=== PATIENT | female | born 1975 | race Caucasian/White ===

== ENCOUNTER 2017-06-21 13:04 | Emergency (ER) | payer MEDICAID ==
--- NOTE | 2017-06-21 13:35 | ED Physician Documentation ---
PD HPI CHEST PAIN - Stated complaint Stated Complaint: SOA, HEAVY CHEST, R ARM DISCOMFORT - Chief complaint Chief Complaint: Cardiac - History obtained from History obtained from: Patient - History of Present Illness Timing - onset: Other (Starting about 2 weeks ago she developed heartburn which was worse with coffee and better after Tums, she had bilateral leg cramping which was notable after using a treadmill. Today she became short of breath which was inexplicable. There is no associated cough but she has had 4 days of chest pressure pretty constantly. Nothing is exertional.) Review of Systems Ten Systems: 10 systems reviewed and negative Constitutional: denies: Fever, Chills Nose: denies: Rhinorrhea / runny nose, Congestion Cardiac: reports: Chest pain / pressure, Calf pain. denies: Palpitations, Pedal edema Respiratory: reports: Dyspnea. denies: Cough, Hemoptysis, Wheezing PD PAST MEDICAL HISTORY - Past Medical History Cardiovascular: None Respiratory: None Neuro: None Endocrine/Autoimmune: None Psych: Depression, Anxiety, Panic attacks Musculoskeletal: None - Past Surgical History Past Surgical History: Yes General: Appendectomy - Present Medications Home Medications: Ambulatory Orders Medication Instructions Recorded Confirmed No Known Home Medications [No 06/21/17 06/21/17 Known Home Medications] - Allergies Allergies/Adverse Reactions: Allergies Allergy/AdvReac Type Severity Reaction Status Date / Time No Known Drug Allergies Allergy Verified 02/22/16 17:12 - Social History Does the pt smoke?: No Smoking Status: Former smoker Does the pt drink ETOH?: No Does the pt have substance abuse?: No - Immunizations Immunizations are current?: Yes - POLST Patient has POLST: No PD ED PE NORMAL - Vitals Vital signs reviewed: Yes - General General: Alert and oriented X 3, No acute distress, Other (Initial BP was 94/50 , that was of small cuff on her forearm, I placed an appropriately sized cuff on her bicep and it was 147/60.) - HEENT HEENT: PERRL, EOMI - Neck Neck: Supple, no meningeal sign, No bony TTP, No bruit - Cardiac Cardiac: RRR, No murmur - Respiratory Respiratory: No respiratory distress, Clear bilaterally - Abdomen Abdomen: Non tender - Extremities Extremities: No edema, No calf tenderness / cord - Neuro Neuro: Alert and oriented X 3, Normal speech - Psych Psych: Normal mood, Normal affect Results - Vitals Vitals: Vital Signs - 24 hr 06/21/17 06/21/17 06/21/17 13:10 13:32 13:35 Temperature 37.1 C Heart Rate 80 78 Respiratory 18 20 Rate Blood Pressure 94/50 L 141/57 H Blood Pressure 125/56 L [Right] O2 Saturation 97 100 06/21/17 14:00 Temperature Heart Rate 79 Respiratory 16 Rate Blood Pressure 125/56 L Blood Pressure [Right] O2 Saturation 97 Oxygen O2 Source Room air - EKG (time done) 1314 Rate: Rate (enter#) (84) Rhythm: NSR Many: Normal Intervals: Normal [place] QRS: Normal Ischemia: Normal ST segments Computer interpretation: Agree with computer - Labs Labs: Laboratory Tests 06/21/17 06/21/17 06/21/17 13:45 13:45 13:45 WBC 8.7 RBC 4.87 Hgb 14.2 Hct 41.1 MCV 84.4 MCH 29.2 MCHC 34.6 RDW 13.5 Plt Count 243 MPV 7.6 L Neut # 6.2 Lymph # 1.6 [place] # 0.7 Eos # 0.2 Baso # 0.1 Absolute Nucleated RBC 0.00 Nucleated RBCs 0.0 D-Dimer Sodium 135 Potassium 4.0 Chloride 100 L Carbon Dioxide 26 Anion Gap 9.0 BUN 16 Creatinine 0.6 Estimated GFR (MDRD) 111 Glucose 84 Calcium 9.5 Total Bilirubin 0.5 AST 24 ALT 51 Alkaline Phosphatase 79 Troponin I < 0.04 Total Protein 7.8 Albumin 4.4 Globulin 3.4 Albumin/Globulin Ratio 1.3 Lipase 18 L Urine Color Urine Clarity Urine pH Ur Specific [place] Urine Protein Urine Glucose (UA) Urine Ketones Urine Occult Blood Urine Nitrite Urine Bilirubin Urine Urobilinogen Ur Leukocyte Esterase Urine RBC Urine WBC Ur Squamous Epith Cells Urine Bacteria Ur Microscopic Review Urine Culture Comments Urine HCG, Qual 06/21/17 06/21/17 14:17 14:55 WBC RBC Hgb Hct MCV MCH MCHC RDW Plt Count MPV Neut # Lymph # [place] # Eos # Baso # Absolute Nucleated RBC Nucleated RBCs D-Dimer < 200.0 L Sodium Potassium Chloride Carbon Dioxide Anion Gap BUN Creatinine Estimated GFR (MDRD) Glucose Calcium Total Bilirubin AST ALT Alkaline Phosphatase Troponin I Total Protein Albumin Globulin Albumin/Globulin Ratio Lipase Urine Color YELLOW Urine Clarity CLEAR Urine pH 6.0 Ur Specific [place] >=1.030 H Urine Protein NEGATIVE Urine Glucose (UA) NEGATIVE Urine Ketones TRACE Urine Occult Blood TRACE-INTA Urine Nitrite NEGATIVE Urine Bilirubin NEGATIVE Urine Urobilinogen 0.2 (NORMAL) Ur Leukocyte Esterase TRACE H Urine RBC 0-5 Urine WBC 4-5 Ur Squamous Epith Cells MANY Squamous H Urine Bacteria Few Ur Microscopic Review INDICATED Urine Culture Comments NOT INDICATED Urine HCG, Qual NEGATIVE - Rads (name of study) 2v chest Radiology: EMP read contemporaneously (normal) PD MEDICAL DECISION MAKING - ED course ED course: 41-year-old woman with what sounds like esophagitis, better with Tums, worse after coffee but now some shortness of breath. D-dimer negative, EKG normal, chest x-ray normal. Departure - Departure Disposition: 01 Home, Self Care Clinical Impression: Chest pain Qualifiers: Chest pain type: unspecified Qualified Code(s): R07.9 - Chest pain, unspecified Condition: Good Record reviewed to determine appropriate education?: Yes Instructions: ED Chest Pain NonCardiac Comments: Call your doctor to arrange a follow-up appointment, make the next available appointment. In the interim, return anytime if worse or if new symptoms develop.
[2017-06-21 14:08] LABS: BASOPHILS # (AUTO) 0.1 10^3/uL (0.0-0.1); BASOPHILS % (AUTO) 0.6 %; EOSINOPHILS # (AUTO) 0.2 10^3/uL (0.0-0.7); EOSINOPHILS % (AUTO) 2.7 %; HCT - HEMATOCRIT 41.1 % (37.0-47.0); HGB - HEMOGLOBIN 14.2 g/dL (12.0-16.0); LYMPHOCYTES # (AUTO) 1.6 10^3/uL (1.5-3.5); LYMPHOCYTES % (AUTO) 18.1 %; MEAN CORPUSCULAR HEMOGLOBIN 29.2 pg (27.0-31.0); MEAN CORPUSCULAR HGB CONC 34.6 g/dL (32.0-36.0); MEAN CORPUSCULAR VOLUME 84.4 fL (81.0-99.0); MEAN PLATELET VOLUME 7.6 fL (7.9-10.8); MONOCYTES # (AUTO) 0.7 10^3/uL (0.0-1.0); MONOCYTES % (AUTO) 7.7 %; NEUTROPHILS # (AUTO) 6.2 10^3/uL (1.5-6.6); NEUTROPHILS % (AUTO) 70.9 %; RED BLOOD COUNT 4.87 10^6/uL (4.20-5.40); RED CELL DISTRIBUTION WIDTH 13.5 % (12.0-15.0); UNCORRECTED WHITE BLOOD COUNT 8.7 x10^3/uL; WHITE BLOOD COUNT 8.7 x10^3/uL (4.8-10.8)
[2017-06-21 14:24] LABS: ALBUMIN/GLOBULIN RATIO 1.3 (1.0-2.2); BILIRUBIN,TOTAL 0.5 mg/dL (0.2-1.0); CALCIUM 9.5 mg/dL (8.5-10.3); CREATININE 0.6 mg/dL (0.4-1.0); TOTAL PROTEIN 7.8 g/dL (6.7-8.2)
[2017-06-21 14:33] LABS: BILIRUBIN,URINE NEGATIVE (NEGATIVE)
[2017-06-21 14:35] LABS: HCG UR QUAL NEGATIVE; UA w/ MICROSCOPIC CHARGE YES
--- NOTE | 2017-06-21 14:40 | XRAY Preliminary Report ---
Exam: XR Chest 2 View PA/LAT IMPRESSION: Normal 2-view chest radiography. [facility] SITE ID: [id number]
--- NOTE | 2017-06-21 14:43 | XRAY Report ---
EXAM: CHEST RADIOGRAPHY EXAM DATE: 06/21/2017 02:21 PM. CLINICAL HISTORY: Dyspnea. COMPARISON: None. TECHNIQUE: 2 views. FINDINGS: Lungs/Pleura: No focal opacities evident. No pleural effusion. No pneumothorax. Normal volumes. Mediastinum: Heart and mediastinal contours are unremarkable. Other: None. IMPRESSION: Normal 2-view chest radiography. [facility] Referring Provider Line: [phone] SITE ID: [id number]
[2017-06-21 14:50] LABS: UR CULTURE IF IND NOT INDICATED
[2017-06-21] MEDS ORDERED: SODIUM CHLORIDE FLUSH 0.9% 10 ML SYRINGE IVP ONE (14:58)
[2017-06-21 15:37] VITALS: BP 132/67
== END 2017-06-21 15:37 | disposition home or self-care (01) ==
LOC: ED 13:04
DX: R07.9 Chest pain, unspecified (principal); R06.02 Shortness of breath; R12 Heartburn; Z87.891 Personal history of nicotine dependence
CPT/HCPCS: 36415; 71020; 80053; 81001; 81003; 81025; 83690; 84484; 85025; 85379; 87086; 93005; 99284

== ENCOUNTER 2019-06-11 08:00 | Outpatient (CLI) | payer MEDICAID ==
[2019-06-11 13:03] LABS: BASOPHILS # (AUTO) 0.1 10^3/uL (0.0-0.1); BASOPHILS % (AUTO) 0.8 %; EOSINOPHILS # (AUTO) 0.2 10^3/uL (0.0-0.7); EOSINOPHILS % (AUTO) 2.8 %; HGB - HEMOGLOBIN 13.3 g/dL (12.0-16.0); LYMPHOCYTES # (AUTO) 1.4 10^3/uL (1.5-3.5); MEAN CORPUSCULAR HEMOGLOBIN 27.8 pg (27.0-31.0); MEAN CORPUSCULAR HGB CONC 32.3 g/dL (32.0-36.0); MEAN CORPUSCULAR VOLUME 86.2 fL (81.0-99.0); MONOCYTES # (AUTO) 0.6 10^3/uL (0.0-1.0); MONOCYTES % (AUTO) 8.1 %; NEUTROPHILS # (AUTO) 4.9 10^3/uL (1.5-6.6); PLT - PLATELET COUNT 235 10^3/uL (130-450); RED BLOOD COUNT 4.78 10^6/uL (4.20-5.40); RED CELL DISTRIBUTION WIDTH 12.9 % (12.0-15.0); WHITE BLOOD COUNT 7.2 x10^3/uL (4.8-10.8)
[2019-06-11 13:15] LABS: ALBUMIN 3.8 g/dL (3.2-5.5); ALKALINE PHOSPHATASE 83 IU/L (42-121); ALT ALANINE AMINOTRANSFERASE 25 IU/L (10-60); AST ASPARTATE AMINOTRANSFERASE 16 IU/L (10-42); BILIRUBIN,TOTAL 0.6 mg/dL (0.2-1.0); BUN - BLOOD UREA NITROGEN 12 mg/dL (6-20); CALCIUM 9.6 mg/dL (8.5-10.3); CARBON DIOXIDE - CO2 27 mmol/L (21-32); CHLORIDE 100 mmol/L (101-111); CHOL/HDL RATIO 3.4 (<4.4); CHOLESTEROL 178 mg/dL; CREATININE 0.7 mg/dL (0.4-1.0); GFR - MDRD 92 (>89); GLUCOSE 88 mg/dL (70-100); HDL CHOLESTEROL 52 mg/dL; LDL CHOLESTEROL,CALCULATED 101 mg/dL; LDL/HDL RATIO 1.9 (<4.4); SODIUM 138 mmol/L (135-145); TOTAL PROTEIN 7.5 g/dL (6.7-8.2); VLDL CHOLESTEROL 25 mg/dL
[2019-06-11 13:35] LABS: CRP - C-REACTIVE PROTEIN < 1.0 mg/dL (0-1.0)
[2019-06-11 15:34] LABS: RHEUMATOID FACTOR NEGATIVE (Negative)
[2019-06-13 15:26] LABS: ANA SCREEN NEGATIVE (NEGATIVE)
== END 2019-06-11 23:59 | disposition home or self-care (01) ==
LOC: LAB.N 08:00
PROVIDERS: ATTEND Nurse Practitioner Gerontology
DX: M25.50 Pain in unspecified joint (principal); Z13.9 Encounter for screening, unspecified
CPT/HCPCS: 36415; 80053; 80061; 83721; 84443; 85025; 85651; 86038; 86140; 86430

== ENCOUNTER 2019-06-20 14:31 | Outpatient (CLI) | payer MEDICAID ==
--- NOTE | 2019-06-21 08:40 | Mammography Report ---
Reason: SCREENING MAMMO Procedure Date: 06/20/2019 Accession Number: [id number] / [id number] Procedure: MGN - Screening Mammo Dig Bilat CPT Code: FULL RESULT: EXAM: Screening Mammo Dig Bilat DATE: 06/20/2019 2:54 PM CLINICAL HISTORY: Screening encounter. Baseline examination. TECHNIQUE: (B) - Bilateral CC and MLO views were obtained. COMPARISON: None PARENCHYMAL PATTERN: (A) - The breast(s) demonstrate(s) scattered fibroglandular densities. FINDINGS: In the right lateral breast, 10:00 position approximately 8 cm from the nipple is a isodense partially obscured otherwise smoothly marginated nodule, approximately 1.7 x 1.3 cm as seen. This requires further characterization by focused right breast ultrasound. There are no suspicious masses, calcifications, or areas of distortion in the left breast. IMPRESSION: Incomplete examination. BI-RADS category 0. RECOMMENDATION: (ADDUS) - Targeted ultrasound recommended. Right breast. BI-RADS CATEGORY: (0) - Incomplete Examination - need additional evaluation. STANDARD QUALIFYING STATEMENTS: 1. This examination was not reviewed with the aid of Computer-Aided Detection (CAD). 2. A negative or benign imaging report should not preclude biopsy if clinically suspicious findings are present. 3. Dense breasts may obscure an underlying neoplasm. 4. This examination was reviewed without the aid of 3D breast imaging (tomosynthesis).
== END 2019-06-20 14:32 | disposition home or self-care (01) ==
LOC: DI.N 14:31
PROVIDERS: ATTEND Nurse Practitioner Gerontology
DX: Z12.31 Encounter for screening mammogram for malignant neoplasm of breast (principal)
CPT/HCPCS: 77067

== ENCOUNTER 2019-06-27 12:16 | Outpatient (CLI) | payer MEDICAID ==
--- NOTE | 2019-06-27 16:22 | Ultrasound Report ---
Reason: ABNORMAL MAMMOGRAM Procedure Date: 06/27/2019 Accession Number: [id number] / [id number] Procedure: US - Breast Unilateral Limited CPT Code: FULL RESULT: EXAM: Breast Unilateral Limited DATE: 06/27/2019 1:36 PM CLINICAL HISTORY: ABNORMAL MAMMOGRAM COMPARISON: 06/20/2019 mammogram TECHNIQUE: Targeted ultrasound was performed of the right breast in the area of clinical concern at 9 o'clock and 7 cm distance from the nipple. Color Doppler was employed as appropriate. FINDINGS: Corresponding to the mammographic abnormality in the right breast 9:00 position, 7 cm from the nipple, is a 1.4 x 0.7 x 1.1 hypoechoic avascular nodule with posterior shadowing. Slight lobulation is present along 1 margin. IMPRESSION: Suspicious abnormality. RECOMMENDATION: Ultrasound-guided core biopsy right breast mass. BIRADS CATEGORY: 4 Suspicious [facility]
== END 2019-06-27 12:17 | disposition home or self-care (01) ==
LOC: DI 12:16
PROVIDERS: ATTEND Nurse Practitioner Gerontology
DX: R92.8 Other abnormal and inconclusive findings on diagnostic imaging of breast (principal)
CPT/HCPCS: 76642

== ENCOUNTER 2019-07-10 08:35 | Outpatient (CLI) | payer MEDICAID ==
[~2019-07-10 08:35] MED LIST: BUFFERED LIDOCAINE 10 ML SYRINGE ONE; BUPIVACAINE 0.5%-EPI 1:200000 PF 10 ML VIAL ONE
--- NOTE | 2019-07-10 14:18 | Mammography Report ---
Reason: ABNORMAL MAMMOGRAM RIGHT BREAST NODULE Procedure Date: 07/10/2019 Accession Number: [id number] / [id number] Procedure: SANDEEP - Diagnostic Dig RT CPT Code: FULL RESULT: PROCEDURE: Ultrasound-guided needle biopsy right breast mass. CLINICAL DATA: Targeted mass measuring 1.4 x 0.7 x 1.1 cm with smooth margins in the 9 o'clock axis of the right breast 7 cm from the nipple. Informed consent was obtained. Using standard aseptic technique, both 1% buffered lidocaine and Sensorcaine were injected into the right breast for local anesthesia. A small wicho was made in the skin with a #11 blade. A 12-gauge [place] vacuum-assisted device was used to obtain 4 specimens. A specialized biopsy marker clip was placed into the biopsy cavity under ultrasound guidance. The patient was taken to separate mammography machine and a two-view digital mammography was performed to verify the clip placement and any complications. The mammography showed the clip located approximately 2 cm lateral and 1 cm anterior and superior to the biopsied mass.. The wound was dressed and ice applied. The patient was observed for approximately 15 minutes, then was discharged from diagnostic imaging Department in good condition following instructions on wound care and obtaining biopsy results. The patient is scheduled to receive the biopsy results from the referring physician. The tissue was sent for histologic analysis. IMPRESSION: Ultrasound-guided biopsy of the right breast. AN ADDENDUM WILL BE MADE TO THIS REPORT WHEN PATHOLOGY IS REVIEWED TO ESTABLISH CONCORDANCE.
[2019-07-10] MEDS ORDERED: BUPIVACAINE 0.5%-EPI 1:200000 PF 10 ML VIAL SUBQ ONE (16:40)
[2019-07-10] MEDS ORDERED: BUFFERED LIDOCAINE 10 ML SYRINGE IU ONE (16:40)
== END 2019-07-10 08:36 | disposition home or self-care (01) ==
LOC: DI 08:35
PROVIDERS: ATTEND Nurse Practitioner Gerontology
DX: D24.1 Benign neoplasm of right breast (principal)
CPT/HCPCS: 19083

== ENCOUNTER 2020-07-28 07:00 | Outpatient (CLI) | payer MEDICAID ==
[2020-08-02 01:24] LABS: CANDIDA GROUP DNA NEGATIVE (NEGATIVE); CANDIDA KRUSEI DNA NEGATIVE (NEGATIVE); TRICHOMONAS VAGINALIS DNA NEGATIVE (NEGATIVE)
== END 2020-07-28 23:59 | disposition home or self-care (01) ==
LOC: LAB.R 07:00
PROVIDERS: ATTEND Obstetrics & Gynecology
DX: R10.2 Pelvic and perineal pain (principal)
CPT/HCPCS: 87661; 87801

== ENCOUNTER 2020-12-15 08:00 | Outpatient (CLI) | payer MEDICAID ==
[2020-12-15 11:52] LABS: BASOPHILS # (AUTO) 0.1 10^3/uL (0.0-0.1); BASOPHILS % (AUTO) 0.5 %; EOSINOPHILS # (AUTO) 0.1 10^3/uL (0.0-0.7); EOSINOPHILS % (AUTO) 0.7 %; HGB - HEMOGLOBIN 13.2 g/dL (12.0-16.0); LYMPHOCYTES # (AUTO) 1.1 10^3/uL (1.5-3.5); LYMPHOCYTES % (AUTO) 10.1 %; MEAN CORPUSCULAR HEMOGLOBIN 28.7 pg (27.0-31.0); MEAN CORPUSCULAR HGB CONC 32.7 g/dL (32.0-36.0); MEAN CORPUSCULAR VOLUME 87.8 fL (81.0-99.0); MEAN PLATELET VOLUME 9.9 fL (7.9-10.8); NEUTROPHILS # (AUTO) 8.9 10^3/uL (1.5-6.6); NEUTROPHILS % (AUTO) 79.4 %; PLT - PLATELET COUNT 269 10^3/uL (130-450); RED CELL DISTRIBUTION WIDTH 12.9 % (12.0-15.0); WHITE BLOOD COUNT 11.2 x10^3/uL (4.8-10.8)
[2020-12-15 12:14] LABS: ALBUMIN 3.9 g/dL (3.2-5.5); ALBUMIN/GLOBULIN RATIO 1.1 (1.0-2.2); BILIRUBIN,TOTAL 0.5 mg/dL (0.2-1.0); CALCIUM 9.4 mg/dL (8.5-10.3); CREATININE 0.7 mg/dL (0.4-1.0); TOTAL PROTEIN 7.5 g/dL (6.7-8.2)
== END 2020-12-15 23:59 | disposition home or self-care (01) ==
LOC: LAB.N 08:00
PROVIDERS: ATTEND Family Medicine
DX: R10.9 Unspecified abdominal pain (principal)
CPT/HCPCS: 36415; 80053; 82150; 83690; 85025; 87086

== ENCOUNTER 2020-12-28 12:26 | Outpatient (CLI) | payer MEDICAID ==
--- NOTE | 2020-12-28 17:06 | Ultrasound Report ---
PROCEDURE: Abdomen Complete INDICATIONS: ABD DISCOMFORT TECHNIQUE: Real-time scanning was performed of the abdominal and retroperitoneal organs, with image documentatio n. COMPARISON: None. FINDINGS: Liver: Liver has a mildly coarsened echotexture, nonspecific finding. No focal liver mass. Gallbladder: Is unremarkable, without gallstones or gallbladder wall thickening or pain on examinatio n. Biliary ducts: Intrahepatic bile ducts are non-dilated. Extrahepatic bile duct caliber measures 4 m m. Normal is 6-7 mm or less in diameter, or 10 mm or less post-cholecystectomy. Pancreas: Visualized portions of the pancreas are sonographically normal. Spleen: Spleen is normal in size and homogeneous in echotexture. Kidneys: Kidneys are normal in size and echotexture. Right kidney measures 11.3 cm long; left kidne y measures 11.6 cm long. No hydronephrosis or nephrolithiasis. No solid masses. Aorta: Visualized aorta is normal in caliber at less than 3 cm. Iliacs: Proximal common iliac arteries are normal in caliber at less than 2.5 cm. IVC: Intrahepatic inferior vena cava is patent. Miscellaneous: No free abdominal fluid. IMPRESSION: 1. Mildly coarsened hepatic echotexture, nonspecific, possibly representing hepatic steatosis. 2. Otherwise unremarkable abdominal ultrasound. Reviewed by: Allan Nguyen MD on 12/28/2020 4:05 PM [facility] Approved by: Allan Nguyen MD on 12/28/2020 4:05 PM [facility] Station ID: [id number]
== END 2020-12-28 12:27 | disposition home or self-care (01) ==
LOC: DI 12:26
PROVIDERS: ATTEND Family Medicine
DX: R93.2 Abnormal findings on diagnostic imaging of liver and biliary tract (principal)

== ENCOUNTER 2021-02-03 08:00 | Outpatient (CLI) | payer MEDICAID ==
[2021-02-03 11:43] LABS: H. PYLORIS ANTIGEN STL NEGATIVE (Negative)
== END 2021-02-03 23:59 | disposition home or self-care (01) ==
LOC: LAB.R 08:00
PROVIDERS: ATTEND Family Medicine
DX: R10.9 Unspecified abdominal pain (principal)
CPT/HCPCS: 87338

== ENCOUNTER 2021-02-13 11:25 | Outpatient (CLI) | payer MEDICAID ==
[2021-02-13] MEDS ORDERED: SODIUM CHLORIDE 0.9% IV ONE (14:35)
[2021-02-13] MEDS ORDERED: SINCALIDE IV ONE (14:35)
--- NOTE | 2021-02-13 15:48 | Nuclear Medicine Report ---
PROCEDURE: Hepatobiliary HIDA w/ Rx INDICATIONS: ABD PAIN, RUQ RADIOPHARMACEUTICAL: 4.98 mCi Tc-99m mebrofenin i.v. and 2.24 ?g sincalide i.v. TECHNIQUE: Following intravenous administration of Tc-99m mebrofenin, sequential anterior abdominal images were obtained through 60 minutes. To evaluate the contractile response of the gallbladder in response to Cholecystokinin (CCK), 2.24 microgram sincalide (0.02 ?g/kg) was administered by slow int ravenous infusion approximately 60 minutes after the administration of the radiopharmaceutical. Sequ ential imaging was continued for 30 minutes after the start of CCK infusion. Gallbladder ejection fr action was calculated. COMPARISON: Abdominal ultrasound 12/28/2020 FINDINGS: Biliary scan: There is normal tracer uptake and excretion by the liver. There is normal visualizati on of the intrahepatic ducts, common bile duct, and gallbladder. There is normal tracer transit into the duodenum. CCK stimulation: There is normal contractile response of the gallbladder to CCK infusion. The calcu lated gallbladder ejection fraction is 97%; normal values are above 35%. IMPRESSION: 1. Normal biliary imaging study. 2. Normal contractile response of gallbladder to CCK infusion.. Reviewed by: Kiran Tan MD on 02/13/2021 3:46 PM PDT Approved by: Kiran Tan MD on 02/13/2021 3:46 PM PDT Station ID: [id number]
== END 2021-02-13 11:26 | disposition home or self-care (01) ==
LOC: DI 11:25
PROVIDERS: ATTEND Family Medicine
DX: R10.11 Right upper quadrant pain (principal)
CPT/HCPCS: 78227; J7040

== ENCOUNTER 2022-11-16 14:30 | Outpatient (CLI) | payer MEDICAID ==
--- NOTE | 2022-11-17 09:16 | Mammography Report ---
BILATERAL DIGITAL SCREENING MAMMOGRAM 3D/2D: 11/16/2022 CLINICAL: Routine screening. Comparison is made to exams dated: 07/10/2019 mammogram and 06/20/2019 mammogram - [facility]. Both breasts are heterogeneously dense, which may obscure small masses (category c / 51-75% glandular tissue). There is a stable benign focal asymmetry in the right breast. No significant masses, calcifications, or other findings are seen in either breast. There has been no significant interval change. IMPRESSION: BENIGN There is no mammographic evidence of malignancy. A 1 year screening mammogram is recommended. Based on the Tyrer Cuzick model (a risk assessment model) the patients lifetime risk is 11.6% and he r 10 year risk is 2.2%. According to the ACR, ACS, and NCCN guidelines, an annual breast MRI exam yamila ng with mammogram is recommended if the patients lifetime risk is 20% or greater. This exam was interpreted at Station ID: [id number]. NOTE: For mammograms, a report in lay terms will be sent to the patient. Approximately 15% of breast malignancies will not be visualized mammographically. In the management of a palpable breast mass, a negative mammogram must not discourage biopsy of a clinically suspicious lesion. Electronically Signed By: Jonah Cadena M.D. acr/penrad:11/16/2022 15:39:40 ACR BI-RADS Category 2: Benign Finding(s) 3342F PARENCHYMAL PATTERN: (D) - The breast(s) demonstrate(s) heterogeneously dense fibroglandular melba jeong. BI-RADS CATEGORY: (2) - 2 RECOMMENDATION: (ANNUAL) - Recommend routine annual screening mammography. [id number] 1 year screening LATERALITY: (B)
== END 2022-11-16 14:31 | disposition home or self-care (01) ==
LOC: DI.N 14:30
DX: Z12.31 Encounter for screening mammogram for malignant neoplasm of breast (principal)

== ENCOUNTER 2022-12-02 09:52 | Outpatient (CLI) | payer MEDICAID ==
--- NOTE | 2022-12-03 10:19 | Ultrasound Report ---
PROCEDURE: Pelvic w/Transvaginal INDICATIONS: ABN PAP TECHNIQUE: Real-time scanning was performed of the pelvic organs, with image documentation. Additional endovagi nal scanning was necessary due to incomplete visualization of the adnexal and endometrial structures by transabdominal scanning. COMPARISON: None. FINDINGS: Uterus: Uterus is anteverted and normal in size at 9.4 x 5.6 x 5.5 cm. The myometrium is heterogene ous. The endometrium measures mm in combined thickness. There are multiple uterine fibroids. There is a 2.0 x 1.6 x 1.5 cm intramural nodule in the posterior left wall. There is a 1.9 x 1.4 x 1.9 cm intramural nodule in the anterior right uterine wall. There is a 0.9 x 0.9 x 0.8 cm intramural nodule in the posterior uterine wall at midline. There are nabothian cysts in cervix. No solid masses. Ovaries: The right ovary measures 4.0 x 2.2 x 2.0 cm, with a calculated ovarian volume of 8.9 cc. T he left ovary measures 4.2 x 2.8 x 2.4 cm, with a calculated ovarian volume of 14.4 cc. There are andrea ateral ovarian cysts. There is a 1.7 x 2.4 x 1.2 cm right ovarian cyst. 2 cysts in the left ovary chrissy suring 1.5 x 1.3 x 1.5 cm and 2.1 x 1.7 x 1.8 cm . Less than 12 follicles can be seen in each ovary. No adnexal masses are seen. Other: No pathologic free abdominal or pelvic fluid. IMPRESSION: 1. Myomatous uterus with multiple of uterine fibroids as described. 2. Bilateral ovarian cysts, likely dominant ovarian follicles. 3. Nabothian cysts in cervix. No solid masses are seen on ultrasound. Reviewed by: Rocky Hopper MD on 12/03/2022 10:17 AM PST Approved by: Rocky Hopper MD on 12/03/2022 10:17 AM PST Station ID: [id number]
== END 2022-12-02 09:53 | disposition home or self-care (01) ==
LOC: DI 09:52
PROVIDERS: ATTEND Physician Assistant
DX: R87.619 Unspecified abnormal cytological findings in specimens from cervix uteri (principal); D25.1 Intramural leiomyoma of uterus; N83.202 Unspecified ovarian cyst, left side; N83.201 Unspecified ovarian cyst, right side; N88.8 Other specified noninflammatory disorders of cervix uteri